=== PATIENT | female | born 1995 | race African-American/Black ===

== ENCOUNTER 2017-02-02 10:45 | Inpatient (IN) ==
[2017-02-03] MEDS ORDERED: AMBIEN PO PRN (20:17)
[2017-02-03] MEDS ORDERED: BRETHINE SUBQ PRN (20:17)
[2017-02-03] MEDS ORDERED: TYLENOL PO PRN (20:17)
[2017-02-03] MEDS ORDERED: ZOFRAN IV PRN (20:17)
[2017-02-03] MEDS ORDERED: PEPCID IV PRN (20:17)
[2017-02-03] MEDS ORDERED: STADOL IV PRN ×3 (20:17)
[2017-02-03] MEDS ORDERED: KEFZOL 1 GM/D5W 1 GM/50 ML IVPB IV PRN (20:17)
[2017-02-03] MEDS ORDERED: PITOCIN 30 UNITS/LR 30 UNITS/500 ML IV.SOLN IV SCH (20:17)
[2017-02-03] MEDS ORDERED: AMPICILLIN 2 GM/NS 2 GM/100 ML IVPB IV ONE (21:00)
[2017-02-03] MEDS: LR 1,000 ML IV SCH (21:20)
[2017-02-03] MEDS ORDERED: CYTOTEC PO ONE (23:00)
[2017-02-03 23:09] LABS: UR AMPHETAMINES QUAL NONE DETECTED (NONE DETECT); UR BARBITUATES QUAL NONE DETECTED (NONE DETECT); UR BENZODIAZEPIN QUAL NONE DETECTED (NONE DETECT); UR CANNABINOIDS QUAL NONE DETECTED (NONE DETECT); UR COCAINE QUAL NONE DETECTED (NONE DETECT); UR MDMA QUAL NONE DETECTED (NONE DETECT); UR METHADONE QUAL NONE DETECTED (NONE DETECT); UR METHAMPHETAMINE QUAL NONE DETECTED (NONE DETECT); UR OPIATES QUAL NONE DETECTED (NONE DETECT); UR OXYCODONE QUAL NONE DETECTED (NONE DETECT); UR PCP QUAL NONE DETECTED (NONE DETECT); UR TCA QUAL NONE DETECTED (NONE DETECT)
[2017-02-03 23:10] LABS: BILIRUBIN URINE NEGATIVE (NEGATIVE); BLOOD URINE 1+ (NEGATIVE); CLARITY CLEAR (CLEAR); COLOR YELLOW; GLUCOSE URINE NEGATIVE (NEGATIVE); LEUKOCYTES URINE 1+ (NEGATIVE); NITRITE URINE NEGATIVE (NEGATIVE); PROTEIN URINE NEGATIVE (NEGATIVE); URINE SOURCE VOIDED; UROBILINOGEN URINE NORMAL
[2017-02-03 23:11] LABS: HEMATOCRIT 31.6 % (37.0-47.0); HEMOGLOBIN 10.9 g/dL (12.0-16.0); MANUAL DIFF NEEDED? NO; MCH 32.1 PG (27-31); MCHC 34.5 g/dL (33-37); MCV 92.9 FL (81-99); PLT 138 X1000 (130-400)
[2017-02-03 23:12] LABS: BASO% 0.3 % (0.0-0.8); EOS# 0.02 X1000 (0.0-0.7); EOS% 0.3 % (0.0-10.0); LYMPH# 1.36 X1000 (1.2-3.4); LYMPH% 17.5 % (20.5-51.1); MONO# 0.49 X1000 (0.11-0.59); MONO% 6.3 % (1.7-9.3); MPV 12.6 FL (7.4-10.4); NEUT% 75.5 % (42.2-75.2)
[2017-02-04] MEDS: AMPICILLIN 1 GM/NS 1 GM/50 ML IVPB IV SCH ×5 (01:30→18:04)
[2017-02-04] MEDS: LR 1,000 ML IV SCH ×2 (08:41→12:32)
[2017-02-04] MEDS ORDERED: FENTANYL-BUPIV-NS 2 MCG-0.1% 200 ML EPIDURAL SCH (09:00)
[2017-02-04] MEDS ORDERED: XYLOCAINE 1% INJ ONE (10:29)
[2017-02-04] MEDS ORDERED: MINERAL OIL TOP ONE ×2 (10:30→18:30)
[2017-02-04] MEDS ORDERED: XYLOCAINE-MPF 1% INJ ONE ×2 (11:22→18:30)
[2017-02-04] MEDS ORDERED: NAROPIN 0.2% ONE ×2 (11:27→18:51)
[2017-02-04] MEDS ORDERED: MARCAINE 0.5% PF ONE (20:27)
[2017-02-04] MEDS ORDERED: MARCAINE 0.5% PF INJ ONE (20:29)
[2017-02-04] MEDS ORDERED: BICITRA ONE (20:33)
[2017-02-04] MEDS ORDERED: PITOCIN ONE (20:52)
[2017-02-04] MEDS ORDERED: ZOFRAN ONE (20:52)
[2017-02-04] MEDS ORDERED: DURAMORPH ONE (20:52)
[2017-02-04] MEDS ORDERED: PITOCIN 20 UNITS/LR 20 UNITS/1,000 ML IV.SOLN ONE (21:30)
[2017-02-04] MEDS ORDERED: ZOFRAN IV PRN ×2 (22:09)
[2017-02-04] MEDS ORDERED: BENADRYL IV PRN (22:09)
[2017-02-04] MEDS ORDERED: ZOFRAN ODT PO PRN (22:09)
[2017-02-04] MEDS ORDERED: NARCAN INJ PRN (22:09)
[2017-02-04] MEDS ORDERED: DULCOLAX PR PRN (22:36)
[2017-02-04] MEDS ORDERED: PERCOCET-5 PO PRN (22:36)
[2017-02-04] MEDS ORDERED: BOOSTRIX VACCINE IM ONE (22:36)
[2017-02-04] MEDS ORDERED: AMBIEN PO PRN (22:36)
[2017-02-04] MEDS ORDERED: PITOCIN IM PRN (22:36)
[2017-02-04] MEDS ORDERED: HYDROXYZINE PO PRN (22:36)
[2017-02-04] MEDS ORDERED: DEMEROL IM PRN (22:36)
[2017-02-04] MEDS ORDERED: CYTOTEC PO PRN (22:36)
[2017-02-04] MEDS ORDERED: PITOCIN 20 UNITS/LR 20 UNITS/1,000 ML IV.SOLN IV ONE (22:36)
[2017-02-04] MEDS ORDERED: M-M-R II VACCINE SUBQ ONE (22:36)
[2017-02-04] MEDS ORDERED: NORCO-10 PO PRN (22:36)
[2017-02-04] MEDS ORDERED: PHENERGAN IM PRN (22:36)
[2017-02-04] MEDS ORDERED: NORCO-5 PO PRN (22:36)
[2017-02-04] MEDS ORDERED: HYDROXYZINE IM PRN (22:36)
[2017-02-04] MEDS ORDERED: DEMEROL PO PRN ×2 (22:36)
[2017-02-04] MEDS: TORADOL IV SCH (23:09)
[2017-02-05] MEDS ORDERED: CYTOTEC PO SCH (03:00)
[2017-02-05] MEDS: TORADOL IV SCH ×3 (05:07→17:45)
[2017-02-05 06:13] LABS: HEMATOCRIT 25.7 % (37.0-47.0); HEMOGLOBIN 8.6 g/dL (12.0-16.0); MCH 31.6 PG (27-31); MCHC 33.5 g/dL (33-37); MCV 94.5 FL (81-99); MPV 12.8 FL (7.4-10.4); RBC 2.72 XMIL (4.2-5.4)
[2017-02-05] MEDS: PERCOCET-10 PO PRN ×4 (08:46→21:56)
[2017-02-05] MEDS: PRECARE PO SCH (09:59)
[2017-02-05] MEDS: MYLICON PO SCH ×4 (09:59→20:53)
[2017-02-05] MEDS: PITOCIN 10 UNITS/LR 10 UNIT/1,000 ML IV.SOLN IV SCH (10:53)
[2017-02-05] MEDS: PERICOLACE PO SCH (20:53)
[2017-02-05] MEDS: LR 1,000 ML IV SCH (21:56)
[2017-02-06] MEDS: MYLICON PO PRN ×2 (00:16→04:55)
[2017-02-06] MEDS: PERCOCET-10 PO PRN ×3 (04:54→17:34)
[2017-02-06] MEDS: MOTRIN PO PRN ×3 (04:55→21:02)
[2017-02-06] MEDS: PITOCIN 10 UNITS/LR 10 UNIT/1,000 ML IV.SOLN IV SCH (07:22)
[2017-02-06] MEDS: LR 1,000 ML IV SCH (07:22)
[2017-02-06] MEDS: PRECARE PO SCH (08:57)
[2017-02-06] MEDS: MYLICON PO SCH ×4 (08:58→20:58)
[2017-02-06] MEDS: PERICOLACE PO SCH (20:58)
[2017-02-07] MEDS: PERCOCET-10 PO PRN ×2 (01:50→08:52)
[2017-02-07 08:45] VITALS: BP 122/70
[2017-02-07] MEDS: MYLICON PO SCH (08:52)
[2017-02-07] MEDS: MOTRIN PO PRN (08:52)
[2017-02-07] MEDS: PRECARE PO SCH (08:52)
== END 2017-02-07 13:05 | disposition home or self-care (01) ==
LOC: P.WC 10:45 → P.LD 02-03 20:14
PROVIDERS: ADMIT Obstetrics & Gynecology; ATTEND Obstetrics & Gynecology